=== PATIENT | female | born 1955 | race Caucasian/White ===

== ENCOUNTER 2019-12-09 09:50 | Outpatient (CLI) | payer OTHER, SELFPAY ==
--- NOTE | ~2019-12-09 | MM_ITS ---
EXAMINATION: MM screening reid BI w irish HISTORY: Screening TECHNIQUE: Craniocaudal and mediolateral oblique 3-D tomosynthesis images were obtained and synthetic 2-D images were generated. CAD analysis was submitted and interpreted. COMPARISON: Comparison to multiple prior studies sequentially, with oldest reviewed study dated 10/2013. BREAST PARENCHYMAL COMPOSITION: Breast composed of scattered areas of fibroglandular density FINDINGS: There is no evidence of suspicious mass, calcification, or architectural distortion to sugg est malignancy in either breast. There has been no suspicious interval change. IMPRESSION: 1. No mammographic evidence of malignancy. 2. Recommend routine screening mammography in one year. BI-RADS Category 1: Negative Reviewed, dictated and finalized at location A.
== END 2019-12-09 09:51 | disposition home or self-care (01) ==
LOC: ANHIMG 09:55
DX: Z12.31 Encounter for screening mammogram for malignant neoplasm of breast (principal)
CPT/HCPCS: 77063; 77067

== ENCOUNTER 2021-10-04 09:02 | Outpatient (CLI) | payer OTHER, SELFPAY ==
--- NOTE | ~2021-10-04 | MM_ITS ---
EXAMINATION: MM screening reid BI w irish HISTORY: Screening mammogram TECHNIQUE: Craniocaudal and mediolateral oblique 3-D tomosynthesis images were obtained and synthetic 2-D images were generated. CAD analysis was submitted and interpreted. COMPARISON: 12/09/2019, 11/10/2018, 10/03/2017 bilateral screening mammogram examinations BREAST PARENCHYMAL COMPOSITION: There are scattered areas of fibroglandular density. FINDINGS: There is no evidence of suspicious mass, calcification, or architectural distortion to sugg est malignancy in either breast. There has been no suspicious interval change. IMPRESSION: 1. No mammographic evidence of malignancy. 2. Recommend routine screening mammography in one year. BI-RADS Category 1: Negative Reviewed, dictated and finalized at location A.
== END 2021-10-04 09:03 | disposition home or self-care (01) ==
DX: Z12.31 Encounter for screening mammogram for malignant neoplasm of breast (principal)
CPT/HCPCS: 77063; 77067

== ENCOUNTER 2023-05-09 13:56 | Outpatient (CLI) | payer MEDICARE, MEDICAID, SELFPAY ==
--- NOTE | ~2023-05-09 | MM_ITS ---
EXAMINATION: MM screening reid BI w irish HISTORY: Screening mammogram, family history of breast cancer in her sister. TECHNIQUE: Craniocaudal and mediolateral oblique 3-D tomosynthesis images were obtained and synthetic 2-D images were generated. CAD analysis was submitted and interpreted. COMPARISON: 10/04/2021, 12/09/2019, 11/10/2018 BREAST PARENCHYMAL COMPOSITION: There are scattered areas of fibroglandular density. FINDINGS: No suspicious mass, calcification, or architectural distortion are identified in either timo ast to suggest malignancy. There has been no suspicious interval change. IMPRESSION: 1. No mammographic evidence of malignancy. 2. Recommend routine screening mammography in one year. BI-RADS Category 1: Negative Reviewed, dictated and finalized at location A. ATTORNEY
== END 2023-05-09 13:57 | disposition home or self-care (01) ==
LOC: ANHIMG 13:59
PROVIDERS: PCP Family Medicine; Visit Provider Family Medicine
DX: Z12.31 Encounter for screening mammogram for malignant neoplasm of breast (principal)
CPT/HCPCS: 77063; 77067

== ENCOUNTER 2025-03-16 09:56 | Outpatient (CLI) | payer MEDICARE, MEDICAID, SELFPAY ==
--- OUTSIDE RECORDS SUMMARY | 2024-11-09 08:10 | XMS_ITS ---
Author Organization 1 OF Carissa rudd [facility] Address [address] [facility] [address] [place] [address] Care Team Providers Care Hot Packer Name Role Phone Neil Louie Primary Care Provider David Robles Unavailable [phone] REASON FOR VISIT f/u B/L PF Encounters Encounter Location Date Provider Diagnosis 1 OF Carissa Rodriguez [facility] [address] [facility] [address] [place] [address] 11/09/2024 David Rodriguez Plantar fasciitis of right foot M72.2 ; Plantar fasciitis of left foot M72.2 ; 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 ; Pronation deformity of right foot M21.6X1 ; Equinus contracture of left ankle M24.572 and Equinus contracture of right ankle M24.571 Assessments Encounter Date Diagnosis (ICD Code) Assessment Notes Treatment Notes Treatment Clinical Notes Section Notes 11/09/2024 Plantar fasciitis of right foot (ICD-10 - M72.2) 11/09/2024 Plantar fasciitis of left foot (ICD-10 - M72.2) 11/09/2024 Pronation deformity of left foot (ICD-10 - M21.6X2) 11/09/2024 Pronation deformity of right foot (ICD-10 - M21.6X1) 11/09/2024 Equinus contracture of left ankle (ICD-10 - M24.572) 11/09/2024 Equinus contracture of right ankle (ICD-10 - M24.571) Plan Of Treatment No Information History and Physical Notes * HPI (History of Present Illness) Category Sub-Category Detail Notes Category Not es MA assisting with visit: Chart Prep Breanna Examination Category Sub-Category Detail Notes Category Not es General Examination Mental status: Cooperative, Oriented to person, place and time, Mood and affect: normal, Judgement and intellect: normal with appropriate response to questions Shoes today: XXXX Exam unchanged from prior visit: with no significant changes in appearance or condition of feet Constitutional / Appearance: No acute di stress , Well nourished, Appropriate personal hygiene Progress Notes * Willow ARTIS MDOB:1955 (70 yo F)Acc No.[id number]:11/09/2024 Progress Notes Patient: Ricardo mcdowell Willow Armendariz Provider: Carissa Rodriguez DPM :1955 A ge:69 Y S ex:Female Date:11/09/2024 Address:[address] [place], [place] [id number] Pcp:Neil Louie Subjective: * Chief Complaints: * f /u B/L PF * HPI: M A assisting with visit:: Chart Prep Rony cook reason for visit:: 69 y/o female RTO for f/u on PF. At last visit, an ultrasound was performed, foot strapping was applied bilaterally, prefab inserts were fitted and dispensed, we recommended new [employer] shoes and coupon was provided, and meloxicam was prescribed, but she was unable to take it due to it interacting with her other medications. Today the pt reports. Objective: * Examination: G eneral Examination: Constitutional / Appearance: N o acute distress , Well nourished, Appropriate personal hygiene. Mental status: C ooperative, Oriented to person, place and time, Mood and affect: normal, Judgement and intellect: normal with appropriate response to questions. Shoes today: X XXX. Exam unchanged from prior visit: w ith no significant changes in appearance or condition of feet . Assessment: * Assessment: 1. P lantar fasciitis of right foot - M72.2 (Primary) 2 . P lantar fasciitis of left foot - M72.2 3 . P ronation deformity of left foot - M21.6X2 ? 4 . P ronation deformity of right foot - M21.6X1 5 . E quinus contracture of left ankle - M24.572 6 . E quinus contracture of right ankle - M24.571? Plan: * Preventive Medicine: Counseling: C are goal follow-up plan: BMI counseling provided to patient:?Lifestyle education Screenings: F ALL RISK SCREENING Fall Risk Assessment: N o falls in the past year * Electronic signature of Mervat Rodriguez DPM on 2025 at 10:57 AM TRANSCRIPTIONIST Sign off status: Pending * Provider: Carissa Rodriguez DPM Date: 0 11/09/2024 Generated for Kirk oquendo/Rajat/Rand on: 1 05/16/2024 10:57 AM TRANSCRIPTIONIST
--- NOTE | ~2025-03-16 | MM_ITS ---
EXAMINATION: MM screening reid BI w irish HISTORY: Screening TECHNIQUE: Craniocaudal and mediolateral oblique 3-D tomosynthesis images were obtained and synthetic 2-D images were generated. CAD analysis was submitted and interpreted. COMPARISON: Comparison to multiple prior studies sequentially, with oldest reviewed study dated 08/29/2016. BREAST PARENCHYMAL COMPOSITION: Not dense: There are scattered areas of fibroglandular density. FINDINGS: There is no evidence of suspicious mass, calcification, or architectural distortion to suggest malignancy in either breast. There has been no suspicious interval change. IMPRESSION: 1. No mammographic evidence of malignancy. 2. Recommend routine screening mammography in one year. BI-RADS Category 1: Negative Reviewed, dictated and finalized at location B. [facility] [employer]
--- OUTSIDE RECORDS SUMMARY | 2025-03-16 10:57 | XMS_ITS | Clinical Summary ---
Author Organization [facility] Care Team Providers Care Neuropsychologist Name Role Phone Unavailable Primary Care Provider Unavailabl e Social History Tobacco Use Types Packs/Day Years Used Date Smoking Tobacco: Never Assessed Comments Unknown Sex and Gender Information Value Date Recorded Sex Assigned at Not on file Legal Sex Female 9:59 AM CDT Gender Identity Not on file Sexual Orientation Not on file Plan of Treatment Health Maintenance Due Date Last Done Comments Hepatitis C Virus (HCV) Screening 1955 TdaP Immunization 1955 Cologuard 2002 Colonoscopy 2002 Colorectal Cancer Screening 2002 Immunochemical Fecal Occult Blood 2002 Pneumococcal Immunization (50+ years) (1 of 1 - PCV) 2007 Zoster Immunization (1 of 2) 2007 Influenza Immunization (#1) 01/03/202502/03, 03/19/2019, 01/29/2018, Additional history exists SARS-COV-2 Immunization ( - season) 2025 Respiratory Syncytial Virus (RSV) Immunization (Adult) (1 - 1-dose 75+ series) 2032 Hepatitis B Immunization Aged Out No longer eligible based on patient's age to complete this topic Human Papillomavirus (HPV) Immunization Aged Out No longer eligible based on patient's age to complete this topic Meningococcal Immunization (ACWY) Aged Out No longer eligible based on patient's age to complete this topic Rotavirus Immunization Aged Out No lo nger eligible based on patient's age to complete this topic
--- OUTSIDE RECORDS SUMMARY | 2025-03-16 10:57 | XMS_ITS | Data Portability ---
Author Organization [place] - [facility] OFFICE Address [address] [place] [address] Care Team Providers Care Director [facility] Name Role Phone ISAI ONEILL Primary Care Provider Assessment Encounter Date Assessment Date Assessment LastModified by Organization Details LastModified Time 01/24/2022 01/24/2022 This document was scribed by KRISTINA Kohli [email or web address] Not available 01/23/2022 16:33:32 07/03/2023 07/03/2023 Patient Examined by KRISTINA Kohli, Also Documentation reviewed and approved by supervising physician [email or web address] Not available 07/03/2023 14:21:51 Plan of Treatment Reminders Order Date Submit Date Provider Last Modified By Organization Details Last Modified Time Details Appointments None recorded. Lab None recorded. Referral None recorded. Procedures None recorded. Surgeries None recorded. Imaging None recorded. Medication Orders Eliquis 5 mg tablet 2023 024 [email or web address] [facility], [address] [place] [address], [id number], 4 14:45:14 Nexletol 180 mg tablet 2022 023 [email or web address] [facility], [address] [place] [address], [id number], 3 13:49:38 Patient TargetsNo targets recorded. Patient Instructions Encounter Date Encounter Id Patient Instructions Last Modified By Organization Details Last Modified Time 01/24/2022 [id number] Exercise advised Low cholesterol diet advised Low sodium diet advised. [email or web address] Not available 01/24/2022 17:44:24 07/03/2023 [id number] Low cholesterol diet advised Low sodium diet advised. [email or web address] Not available 07/03/2023 14:27:01 09/30/2023 [id number] Exercise advised Low cholesterol diet advised Low sodium diet advised. [email or web address] Not available 09/30/2023 09:45:32 Reason for Referral None Reported. Results Created Date Observation Date Name Description Value Unit Range Abnormal Flag Note LastModifiedBy Organization Detail LastModifiedTime 01/17/2001/15/2022 elect rocar diogr am No observ ation record ed. [email or web address] Not Available 2021 11:51:50 07/30/19 23 07/26/2022 elect rocar diogr am No observ ation record ed. [email or web address] Not Available 2022 12:49:55 04/23/20 23 04/17/2023 US, echoc ardio gram No observ ation record ed. [email or web address] Not Available 2022 14:21:11 05/28/19 24 04/30/2023 event monit or No observ ation record ed. [email or web address] Not Available 2023 13:27:02 07/09/19 24 07/03/2023 elect rocar diogr am No observ ation record ed. Not Available 2023 10:33:34 09/01/19 24 08/07/2023 US, carot id arter y No observ ation record ed. [email or web address] Not Available 2023 14:57:14 09/30/19 24 09/30/2023 elect rocar diogr am No observ ation record ed. [email or web address] Not Available 2023 10:13:12 Result Notes Documentation Provider Name and Address Organization Details Recorded Time Lipid Panel, Blood : 07/31/23:Na 142,K 4.0,CL 103,CO2 26,GLU 87,BUN 8,Cr 0.77,AST 15,ALT 6,TSH ,T4 ,T3 ,HbA1c ,CK 54.Mg . 07/31/23:TC 206,TG 73,HDL 56,LDL 137. Jim Kovacs [facility], [place] - [facility] 08/03/2023 17:10:01 Problems Name Problem SNOMED Code Status Onset Date Resolution Date Notes Provider Name and Address Organization Details Recorded Time Supraventr icular tachycardi a 1991508 Active 2016 Jim Kovacs [facility] 7 12:28:38 Palpitatio ns 74678650 [facility] 7 14:59:40 Hypothyroi dism 68445854 Active 2016 Lenny Bowles [facility] 7 15:04:35 Chest pain 71610501 Active 2016 Lenny Bowles [facility] 7 15:15:35 Coronary arterioscl erosis 78385039 Active 201710/28/17 CATH: Single vessel coronary artery disease with small vessel disease, otherwise no obstructiv e disease. Normal left ventricula r systolic function. Fernandezmeena Kovacs [facility] 8 11:53:05 Mixed hyperlipid emia 269553059 Active 2019 Jim Kovacs [facility] 3 16:22:26 Mitral valve prolapse 905296100 Active 2020 [facility] 1 15:49:03 Problem Notes None recorded. Medical Equipment None Reported. Allergies Allergen ID Allergen Name Allergen Category Reaction Reaction Severity Criticality Documentation Date Start Date Code Code System Note Provider Name and Address Organization Details Recorded Time 6463 cefprozil medicatio n Not available Not available Not available 11/02/2017 88053 RxNorm Jim Kovacs [facility] 8 11:59:03 6464 cephalexi n medicatio n Not available Not available Not available 11/02/2017 2231 RxNorm Fernandez [facility] 8 11:59:29 Medications Name Sig Start Date Stop Date Status Note LastModified by Organization Details LastModified Time nystatin 100,000 unit/mL oral suspensio n Hold one teaspoon in MOUTH AND THEN swallow 4x daily Discard THE remainin g 04/05 completed Not Available Not Available Not Available atorvasta tin 20 mg tablet TAKE ONE TABLET BY MOUTH EVERY DAY 07/17 completed Not Available Not Available Not Available clindamyc in HCl 300 mg capsule 03/24 completed Not Available Not Available Not Available triazolam 0.25 mg tablet TAKE ONE TABLET BY MOUTH ONE HOUR BEFORE dental appt, if very nervous take THE other TABLET at bedtime THE night BEFORE dental appt do not drive while taking this med, must arrange transpor tation TO AND from appt 01/15 completed Not Available Not Available Not Available atorvasta tin 10 mg tablet 1 tab qd 03/26 completed Not Available Not Available Not Available azithromy shahla 250 mg tablet 11/04 completed Not Available Not Available Not Available nystatin 100,000 unit/gram topical ointment 09/29 completed Not Available Not Available Not Available clarithro mycin 500 mg tablet 11/04 completed Not Available Not Available Not Available hydrocodo ne 5 mg-acetam inophen 325 mg tablet TAKE ONE TABLET BY MOUTH EVERY 6 HOURS NEEDED FOR PAIN 04/05 completed Not Available Not Available Not Available ondansetr on HCl 4 mg tablet ON THE DAY prior TO surgery TAKE ONE TABLET BY MOUTH AT 12pm AND TAKE ONE TABLET BY MOUTH AT 7pm 04/05 completed Not Available Not Available Not Available famotidin e 40 mg tablet TAKE ONE TABLET BY MOUTH DAILY 04/05 completed prn Not Available Not Available Not Available prednison e 20 mg tablet TAKE THREE TABLETS BY MOUTH EVERY DAY FOR THREE DAYS THEN TAKE TWO TABLETS BY MOUTH EVERY DAY FOR THREE DAYS THEN TAKE ONE TABLET BY MOUTH FOR THREE DAYS 04/05 completed Not Available Not Available Not Available alendrona te 70 mg tablet TAKE ONE TABLET BY MOUTH ONCE weekly in THE morning 30 MINUTES BEFORE first food, beverage , OR medicine 04/05 completed Not Available Not Available Not Available metronida zole 250 mg tablet TAKE ONE TABLET BY MOUTH EVERY DAY FOR 10 DAYS 03/02 completed Not Available Not Available Not Available metronida zole 500 mg tablet 03/02 completed Not Available Not Available Not Available fluocinon herman 0.05 % topical ointment 09/29 completed Not Available Not Available Not Available acetamino phen 300 mg-codein e 30 mg tablet 09/29 completed Not Available Not Available Not Available ciproflox acin 250 mg tablet 03/24 completed Not Available Not Available Not Available ciproflox acin 500 mg tablet TAKE ONE TABLET BY MOUTH AT 2pm, 3pm AND 10pm THE DAY BEFORE surgery 03/02 completed Not Available Not Available Not Available sulfameth oxazole 800 mg-trimet hoprim 160 mg tablet TAKE ONE TABLET BY MOUTH TWICE DAILY 04/05 completed Not Available Not Available Not Available peg-elect rolyte solution 420 gram oral solution take as directed by office 04/05 completed Not Available Not Available Not Available omeprazol e 40 mg capsule,d elayed release TAKE ONE CAPSULE BY MOUTH DAILY BEFORE a meal 03/02 completed pt is no longer taking 07/26/22 SA Not Available Not Available Not Available aspirin 81 mg tablet,de layed release Take 1 tablet every day by oral route. 09/29 completed Pt is not taking this medicati on 06/23/19 21 sm Not Available Not Available Not Available tramadol 50 mg tablet 09/29 completed Not Available Not Available Not Available Medrol 4 mg tablet Take 1 tablet 4 times a day by oral route as needed. 03/06 completed Not Available Not Available Not Available levothyro xine 25 mcg tablet 03/24 completed pt not taking 03/24/20 SP Not Available Not Available Not Available levothyro xine 75 mcg tablet TAKE 1 TABLET BY MOUTH ONCE DAILY active Not Available Not Available No t Available nystatin- triamcino lone 100,000 unit/gram -0.1 % topical ointment 09/29 completed Not Available Not Available Not Available ofloxacin 0.3 % ear drops 03/06 completed Not Available Not Available Not Available famotidin e 20 mg tablet TAKE ONE TABLET BY MOUTH NIGHTLY at bedtime FOR ONE MONTH NEEDED 04/05 completed prn Not Available Not Available Not Available lorazepam 0.5 mg tablet 09/29 completed Not Available Not Available Not Available tamsulosi n 0.4 mg capsule Take 1 capsule every day by oral route. 03/26 completed Not Available Not Available Not Available dicyclomi ne 20 mg tablet TAKE ONE TABLET BY MOUTH THREE TIMES DAILY NEEDED 03/02 completed Not Available Not Available Not Available baclofen 10 mg tablet 09/29 completed Not Available Not Available Not Available levothyro xine 50 mcg tablet TAKE ONE TABLET BY MOUTH ONCE daily 09/28 completed Not Available Not Available Not Available hydrocodo ne 7.5 mg-acetam inophen 325 mg tablet Take 1 tablet every 6 hours by oral route as needed. 09/29 completed Not Available Not Available Not Available pantopraz ole 40 mg tablet,de layed release TAKE ONE TABLET BY MOUTH TWICE DAILY active Not Available Not Available No t Available simvastat in 20 mg tablet pt hasnt started this has question s 11/03/17 nl 03/26 completed Not Available Not Available Not Available triamcino lone acetonide 0.1 % topical ointment apply topicall y TO external vulvar tissues EVERY DAY DIRECTED 04/05 completed Not Available Not Available Not Available promethaz ine 25 mg tablet TAKE ONE-HALF TABLET BY MOUTH EVERY SIX HOURS NEEDED 04/05 completed Not Available Not Available Not Available nitroglyc rachel 0.4 mg sublingua l tablet DISSOLVE 1 TABLET UNDER THE TONGUE EVERY 5 MINUTES NEEDED FOR CHEST PAIN. DO NOT EXCEED A TOTAL OF 3 DOSES IN 15 MINUTES. 04/05 completed Not Available Not Available Not Available gabapenti n 300 mg capsule 06/23 completed Not Available Not Available Not Available omeprazol e 20 mg capsule,d elayed release TAKE TWO TABLETS BY MOUTH TWICE DAILY 03/02 completed pt is no longer taking 07/26/22 SA Not Available Not Available Not Available clobetaso l 0.05 % topical ointment 09/29 completed Not Available Not Available Not Available ibuprofen 600 mg tablet 09/29 completed Not Available Not Available Not Available scopolami ne 1 mg over 3 days transderm al patch apply one PATCH TO cleaned AND DRY SKIN behind ear AT 12 NOON ON THE DAY BEFORE surgery AND LEAVE ON 04/05 completed Not Available Not Available Not Available methylpre dnisolone 4 mg tablets in a dose pack 03/06 completed Not Available Not Available Not Available Vitamin D2 1,250 mcg (50,000 unit) capsule TAKE ONE CAPSULE BY MOUTH ONCE a WEEK 04/05 completed Not Available Not Available Not Available ondansetr on 4 mg disintegr ating tablet TAKE ONE TABLET BY MOUTH EVERY 8 HOURS NEEDED FOR NAUSEA OR FOR VOMITING UP TO 10 DAYS 04/05 completed prn Not Available Not Available Not Available fluticaso ne propionat e 50 mcg/actua tion nasal spray,ana pension instill TWO SPRAYS in each nostril ONCE daily 04/05 completed Not Available Not Available Not Available dicyclomi ne 10 mg capsule TAKE ONE CAPSULE BY MOUTH EVERY SIX hours NEEDED 04/05 completed Not Available Not Available Not Available loratadin e 10 mg tablet 03/06 completed Not Available Not Available Not Available simethico ne 80 mg chewable tablet chew ONE TABLET BY MOUTH THREE TIMES DAILY NEEDED FOR belching 04/05 completed Not Available Not Available Not Available oxycodone 5 mg tablet 04/05 completed Not Available Not Available Not Available Vitamin D 50,000 unit capsule Take 1 capsule by oral route. 03/02 completed Not Available Not Available Not Available cyclobenz aprine 5 mg tablet TAKE 1 TO 2 TABLETS BY MOUTH THREE TIMES DAILY NEEDED muscle tightnes s 04/05 completed Not Available Not Available Not Available rosuvasta tin 5 mg tablet TAKE ONE TABLET BY MOUTH EVERY EVENING 04/05 completed pt is no longer taking 07/26/22 SA Not Available Not Available Not Available nitrofura ntoin monohydra te/macroc rystals 100 mg capsule 09/29 completed Not Available Not Available Not Available Vitamin D3 09/28 completed Not Available Not Available Not Available Vitamin B12 09/28 completed Not Available Not Available Not Available FeroSul 325 mg (65 mg iron) tablet TAKE 1 TABLET BY MOUTH TWICE DAILY active Not Available Not Available No t Available Linzess 145 mcg capsule TAKE ONE CAPSULE BY MOUTH EVERY DAY 04/05 completed Not Available Not Available Not Available Eliquis 5 mg tablet TAKE 1 TABLET BY MOUTH TWICE DAILY active Not Available Not Available No t Available dicyclomi ne 10 mg tablet Take 4 times a day by oral route as needed. 11/04 completed Not Available Not Available Not Available Fluvirin 5847-5527 (PF) 45 mcg(15 mcg x3)/0.5 mL intramusc ular syringe 03/06 completed Not Available Not Available Not Available Nexletol 180 mg tablet TAKE ONE TABLET BY MOUTH DAILY 04/05 completed Not Available Not Available Not Available ID NOW COVID-19 Test Kit TEST DIRECTED 01/15 completed Not Available Not Available Not Available Vitals Date Recorded Body height Body mass index (BMI) Body weight Heart rate Oxygen saturation Oxygen saturation in Arterial blood by Pulse oximetry Systolic And Diastolic Provider Name and Address Organization Details Last Updated DateTime 4 149.86 cm 24.8 kg/m2 59867.4 2 g 75 /min 98 % 98 % 120/82 mm[Hg] Eleanor Pinedaes [facility] 4 13:51:31 Date Recorded Body height Body mass index (BMI) Body weight Oxygen saturation Oxygen saturation in Arterial blood by Pulse oximetry Heart rate Systolic And Diastolic Provider Name and Address Organization Details Last Updated DateTime 3 149.86 cm 22.5 kg/m2 61072.5 5 g 99 % 99 % 60 /min 120/72 mm[Hg] KHUSHBOO LEUNG [facility] 3 11:49:58 Date Recorded Body height Body mass index (BMI) Body weight Heart rate Oxygen saturation Oxygen saturation in Arterial blood by Pulse oximetry Systolic And Diastolic Provider Name and Address Organization Details Last Updated DateTime 4 149.86 cm 25.6 kg/m2 31268.5 1 g 55 /min 97 % 97 % 125/72 mm[Hg] Mara White [facility] 4 09:18:18 Date Recorded Body height Body mass index (BMI) Body weight Systolic And Diastolic Provider Name and Address Organization Details Last Updated DateTime 01/24/2022 149.86 cm 21.4 kg/m2 85192.51 g 106/62 mm[Hg] KHUSHBOO LEUNG [facility] 01/24/2022 17:22:09 Date Recorded Body height Body mass index (BMI) Body weight Heart rate Oxygen saturation Oxygen saturation in Arterial blood by Pulse oximetry Systolic And Diastolic Provider Name and Address Organization Details Last Updated DateTime 3 149.86 cm 23.2 kg/m2 41220.1 2 g 61 /min 97 % 97 % 114/67 mm[Hg] Mara White [facility] 3 13:52:24 Social History Question Answer Notes LastModified by Organizat ion Details LastModified Time Tobacco Smoking Status Never Smoker Not Available [facility] 03/07/2020 03:30:41 Marital Status shahida rudd not available 03/06/2017 What Was The Date Of Your Most Recent Tobacco Screening? 03/06/2017 [id number] Information not available 03/07/2020 How Many Children Do You Have? 2 [id number] Information not available 03/07/2020 How Much Tobacco Do You Smoke? No Information not available 03/23/2020 How Many Years Have You Smoked Tobacco? 0 [id number] Information not available 03/07/2020 Sex: Unknown Functional Status Question Answer Note LastModified by Organizat ion Details LastModified Time What is your level of alcohol consumption? None [id number] Information not available 03/07/2020 Do you or have you ever used smokeless tobacco? Never used smokeless tobacco Information not available 03/23/2020 Do you or have you ever used e-cigarettes or vape? Never used electronic cigarettes Information not available 03/23/2020 Mental Status None recorded. Family History Nothing Reported Notes:father with AR in 60s Medical History Condition Response Coronary Artery Disease Y Thyroid Disease Y Valvular Heart Disease Y Hyperlipidemia Y Arrhythmia Y Gynecological HistoryNo gynecological history recorded. Obstetrics History GPAL:G 0 P 0 0 0 0 Past Encounters Encounter ID Performer Location Encounter Start Date Encounter Closed Date Diagnosis/Indication Diagnosis SNOMED-CT Code Diagnosis ICD10 Code Diagnosis IMO Codes Diagnosis Note [id number] MD Lauren Cantu Office [address] [place] [address] 03/06/2017 14:09:36 03/07/2017 14:18:31 Palpitations 15328542 R00.2 Chronic, daily, but improved off tamsulosin . Obtain 24 hour Holter initially. Obtain CMP, Mg. Hypothyroidism 94889391 E03.9 Obtain TSH. Chest pain 95811434 R07. 9 Patient presents with chest pain with atypical features and exertional dyspnea which can be an anginal equivalent . Given the history, exam findings and high cardiac risk factors, I feel additional investigat ion is warranted. I have made arrangemen ts in the near future for an exercise stress nuclear test and an echocardio gram to evaluate for any ischemia or structural heart disease. The procedure was discussed with the patient, and risks, benefits, and alternativ e options were explained. Appropriat e labwork has not been performed recently, therefore I have made arrangemen ts for further testing: FLP, CMP, Mg, TSH. I have asked the patient to curtail exercise and activities until our investigat ion is complete. I have made the following adjustment s to the present medical regimen. Patient has been started on daily aspirin. [id number] Lenny Bowles MD [facility] Office [address] [place] [address] 03/25/2017 11:54:28 03/31/2017 11:42:25 Palpitations 75752024 R00.2 Chronic, daily, but improved off tamsulosin and with reduction in caffeine. Obtained unremarkab le 24 hour Holter initially but pt did not have symptoms while wearing. Reports single episode 03/16/17 of tachypalpi tations for 20 minutes with some associated dizziness and presyncope . Obtain 30 day event monitor. Consider adjustment of Synthroid as below. Hypothyroidism 98727763 E03.9 Obtained TSH 03/10/17 which was low at 0.05. Free T4 high at 1.93. Pt to f/u with PCP for possible reduction in levothyrox ine. Pt reports weight loss and tachypalpi tations. Chest pain 83040438 R07. 9 Atypical chest pain stable. Had exercise nuclear stress test 03/20/17: negative for ischemia, LVEF 60%. LDL 111 03/2017. [id number] Jean Paul Edwards MD [place] [facility] [address] [place] [address] 11/04/2017 17:54:36 11/10/2017 16:28:57 Palpitations 30633947 R00.2 Chronic, daily, but improved off tamsulosin and with reduction in caffeine. Obtained unremarkab le 24 hour Holter initially but pt did not have symptoms while wearing. Reports single episode 03/16/17 of tachy palpitatio ns for 20 minutes with some associated dizziness and presyncope . Obtain 30 day event monitor. Consider adjustment of Synthroid as below. Hypothyroidism 67281545 E03.9 Obtained TSH 03/10/17 which was low at 0.05. Free T4 high at 1.93. Pt to f/u with PCP for possible reduction in levothyrox ine. Pt reports weight loss and tachy palpitatio ns. Chest pain 45192076 R07. 9 Resolved, with stable angina Cardiac rehab at [facility] Had exercise nuclear stress test 03/20/17: negative for ischemia, LVEF 60%. 10/27/17: LDL 139Started on Simvastati n Patient has been given a prescripti on for sublingual nitroglyce rin. Coronary arteriosclerosis 65611563 I25.10 Had Echo on 10/28/17 showing normal LV thickness, and function EF 55-60%. Mild MVP. Trace mitral regurgitat ion. She had Cath 10/27/17 which showed single vessel coronary artery disease with small vessel disease, otherwise no obstructiv e disease. Normal LV systolic function. [id number] Jean Paul Edwards MD [place] [facility] [place] [address] 02/03/2018 12:43:28 02/03/2018 14:22:50 Coronary arteriosclerosis 00865607 I25.10 Stable. Had Echo on 10/28/17 showing normal LV thickness, and function EF 55-60%. Mild MVP. Trace mitral regurgitat ion. She had Cath 10/27/17 which showed single vessel coronary artery disease with small vessel disease, otherwise no obstructiv e disease. Normal LV systolic function. Palpitations 80681037 R0 0.2 Chronic, daily, but improved off tamsulosin and with reduction in caffeine. Obtained unremarkab le 24 hour Holter initially but pt did not have symptoms while wearing. Fish oil for PVC's Hypothyroidism 82211376 E03.9 Obtained TSH 03/10/17 which was low at 0.05. Free T4 high at 1.93. Pt to f/u with PCP for possible reduction in levothyrox ine. Pt reports weight loss and tachy palpitatio ns. Chest pain 82128426 R07. 9 Resolved, with stable angina Cardiac rehab at [facility] Had exercise nuclear stress test 03/20/17: negative for ischemia, LVEF 60%. [id number] Jean Paul Edwards MD [place] [facility] [place] [address] 09/22/2018 11:14:13 09/22/2018 12:22:44 Coronary arteriosclerosis 04973588 I25.10 Stable. Continue medical management . Had Echo on 10/28/17 showing normal LV thickness, and function EF 55-60%. Mild MVP. Trace mitral regurgitat ion. She had Cath 10/27/17 which showed single vessel coronary artery disease with small vessel disease, otherwise no obstructiv e disease. Normal LV systolic function. Palpitations 96100479 R0 0.2 Chronic, daily, but improved off tamsulosin and with reduction in caffeine.O btained unremarkab le 24 hour Holter initially but pt did not have symptoms while wearing. Fish oil for PVC's Hypothyroidism 76598251 E03.9 Obtained TSH 03/10/17 which was low at 0.05. Free T4 high at 1.93. Pt to f/u with PCP for possible reduction in levothyrox ine. Pt reports weight loss and tachy palpitatio ns. Chest pain 95826356 R07. 9 Symptoms resolved. Mixed hyperlipidemia 267 084939 E78.2 LDL is not at goal. Will increase Atorvastat in from 10 to 20 mg daily.07/04 09/20: TC 152 ,TG 56 ,HDL 49 ,LDL 92 ,CK 42 [id number] Jean Paul Edwards MD [address] [address] 03/26/2019 11:02:08 03/26/2019 12:14:02 Coronary arteriosclerosis 85450189 I25.10 Stable. Continue medical management . Had Echo on 10/28/17 showing normal LV thickness, and function EF 55-60%. Mild MVP. Trace mitral regurgitat ion. She had Cath 10/27/17 which showed single vessel coronary artery disease with small vessel disease, otherwise no obstructiv e disease. Normal LV systolic function. Palpitations 63828489 R0 0.2 Resolved. Hypothyroidism 66945543 E03.9 Obtained TSH 03/10/17 which was low at 0.05. Free T4 high at 1.93. Pt to f/u with PCP for possible reduction in levothyrox ine. Pt reports weight loss and tachy palpitatio ns. Chest pain 99486867 R07. 9 Symptoms resolved. Mixed hyperlipidemia 267 361432 E78.2 LDL at goal. Continue taking atorvastat in 20 mg03/19/19 LIPID: TC 153, TR 82, HDL 49, LDL 88 [id number] Corey Redd MD [place] [facility] [address] [place] [address] 03/24/2020 11:16:09 03/24/2020 12:30:35 Coronary arteriosclerosis 82986716 I25.10 Stable, remains asymptomat ic. [facility] 10/27/2017 : single vessel coronary artery disease with small vessel disease, otherwise no obstructiv e disease. Normal LV systolic function. Stress test 03/20/17 : Negative stress test for ischemia. Normal LV systolic function. No previous study to compare. Exercise tolerance is average. LVEF >60%. Palpitations 14046952 R0 0.2 Resolved Echo 10/28/2017 : normal LV thickness, and function EF 55-60%. Mild MVP. Trace mitral regurgitat ion. Hypothyroidism 52132217 E03.9 Managed by PCP Chest pain [id number] R07. 9 Resolved Mixed hyperlipidemia 267 981124 E78.2 Needs to keep LDL less than 70, and HDL more than 40. 02/29/2020 LDL 102Reports she stopped taking atorvastat in 20mg but reports she will restart Will get fasting lipids for follow-up Mitral valve prolapse 40 [id number] I34.1 Remains asymptomat ic Echo 10/28/2017 : There is normal left ventricula r wall thickness. Left ventricula r systolic function is normal. Ejection fraction= 55-60%. There is mild mitral valve prolapse. There is trace mitral regurgitat ion. [id number] MD Lauren [facility] Office [address] [place] [address] 06/23/2020 11:08:20 06/23/2020 11:58:04 Coronary arteriosclerosis [id number] I25.10 Stable, recent ER visit with atypical chest pain and palpitatio ns Check holterChec k 2D echo [facility] 10/27/2017 : single vessel coronary artery disease with small vessel disease, otherwise no obstructiv e disease. Normal LV systolic function. Stress test 03/20/17 : Negative stress test for ischemia. Normal LV systolic function. No previous study to compare. Exercise tolerance is average. LVEF >60%. Palpitations [id number] R0 0.2 Resolved Echo 10/28/2017 : normal LV thickness, and function EF 55-60%. Mild MVP. Trace mitral regurgitat ion. Hypothyroidism 05405772 E03.9 Managed by PCP Chest pain [id number] R07. 9 Resolved Mixed hyperlipidemia 267 315478 E78.2 Needs to keep LDL less than 70, and HDL more than 40. 02/29/2020 LDL 102Reports she stopped taking atorvastat in 20mg but reports she will restart Will get fasting lipids for follow-up Mitral valve prolapse 40 6053601 I34.1 Remains asymptomat ic Echo 10/28/2017 : There is normal left ventricula r wall thickness. Left ventricula r systolic function is normal. Ejection fraction= 55-60%. There is mild mitral valve prolapse. There is trace mitral regurgitat ion. [id number] Jean Paul Edwards MD [place] [facility] [address] [place] [address] 09/29/2020 09:52:49 09/29/2020 10:24:51 Coronary arteriosclerosis [id number] I25.10 Stable, now asymptomat ic. [facility] 10/27/2017 : Single vessel coronary artery disease with small vessel disease, otherwise no obstructiv e disease. Normal LV systolic function. Continue maximal medical treatment Palpitations [id number] R0 0.2 Resolved Echo 07/24/2020 : LV wall thickness is normal. LV systolic function is normal. The estimated left ventricle ejection fraction is 55-60% (normal). There is a trileaflet aortic valve. There is trivial aortic regurgitat ion. Mitral valve prolapse cannot be ruled out. The mitral valve leaflet is mildly thickened. There is mild mitral regurgitat ion. Tricuspid valve is structural ly normal. There is moderate tricuspid regurgitat ion. There is no pericardia l effusion present. Sinus bradycardi a. Hypothyroidism 10723711 E03.9 Managed by PCP Chest pain [id number] R07. 9 Resolved LHC as above Mixed hyperlipidemia 267 991903 E78.2 Needs to keep LDL less than 70, and HDL more than 40. 06/18/2020 LDL 103 Restarted atorvastat in 20 mg at last visit Will get fasting lipdis for follow-up Mitral valve prolapse 40 2017467 I34.1 Now asymptomat ic Echo as above [id number] Jean Paul Edwards MD [place] [facility] [address] [place] [address] 07/17/2021 10:20:04 07/17/2021 11:30:36 Coronary arteriosclerosis 73616151 I25.10 Stable, now asymptomat ic. [facility] 10/27/2017 : Single vessel coronary artery disease with small vessel disease, otherwise no obstructiv e disease. Normal LV systolic function. Continue maximal medical treatment Palpitations [id number] R0 0.2 Fish oilEcho 07/24/2020 : LV wall thickness is normal. LV systolic function is normal. The estimated left ventricle ejection fraction is 55-60% (normal). There is a trileaflet aortic valve. There is trivial aortic regurgitat ion. Mitral valve prolapse cannot be ruled out. The mitral valve leaflet is mildly thickened. There is mild mitral regurgitat ion. Tricuspid valve is structural ly normal. There is moderate tricuspid regurgitat ion. There is no pericardia l effusion present. Sinus bradycardi a. Hypothyroidism 50964029 E03.9 Managed by PCP Chest pain [id number] R07. 9 Resolved [facility] as above Mixed hyperlipidemia 267 391127 E78.2 Needs to keep LDL less than 70, and HDL more than 40. 06/18/2020 LDL 103 Restarted atorvastat in 20 mg at last visit Will get fasting lipdis for follow-up Mitral valve prolapse 40 1639996 I34.1 Now asymptomat ic Echo as above Atrial fibrillation 4943 6004 I48.91 [id number] Jean Paul Edwards MD [place] [facility] [address] [place] [address] 01/15/2022 10:48:14 01/15/2022 11:31:33 Coronary arteriosclerosis 20041717 I25.10 Stable, now asymptomat ic.take baby aspirin [facility] 10/27/2017 : Single vessel coronary artery disease with small vessel disease, otherwise no obstructiv e disease. Normal LV systolic function. Continue maximal medical treatment Palpitations [id number] R0 0.2 Fish oilEcho 07/24/2020 : LV wall thickness is normal. LV systolic function is normal. The estimated left ventricle ejection fraction is 55-60% (normal). There is a trileaflet aortic valve. There is trivial aortic regurgitat ion. Mitral valve prolapse cannot be ruled out. The mitral valve leaflet is mildly thickened. There is mild mitral regurgitat ion. Tricuspid valve is structural ly normal. There is moderate tricuspid regurgitat ion. There is no pericardia l effusion present. Sinus bradycardi a. Hypothyroidism 56647520 E03.9 Managed by PCP Chest pain [id number] R07. 9 Resolved [facility] as above Mixed hyperlipidemia 267 181598 E78.2 Needs to keep LDL less than 70, and HDL more than 40. 06/18/2020 LDL 103 She is not taking atorvastat in Will get fasting lipdis for follow-up Mitral valve prolapse 40 5931989 I34.1 Now asymptomat ic Echo as above [id number] Jean Paul Edwards MD [place] [facility] [place] [address] 01/24/2022 17:01:08 01/24/2022 17:47:52 Coronary arteriosclerosis 21820511 I25.10 Stable, now asymptomat ic.take baby aspirin [facility] 10/27/2017 : Single vessel coronary artery disease with small vessel disease, otherwise no obstructiv e disease. Normal LV systolic function. Continue maximal medical treatment Palpitations 43828405 R0 0.2 Fish oilEcho 07/24/2020 : LV wall thickness is normal. LV systolic function is normal. The estimated left ventricle ejection fraction is 55-60% (normal). There is a trileaflet aortic valve. There is trivial aortic regurgitat ion. Mitral valve prolapse cannot be ruled out. The mitral valve leaflet is mildly thickened. There is mild mitral regurgitat ion. Tricuspid valve is structural ly normal. There is moderate tricuspid regurgitat ion. There is no pericardia l effusion present. Sinus bradycardi a. Hypothyroidism 92828254 E03.9 Managed by PCP Chest pain [id number] R07. 9 Resolved [facility] as above Mixed hyperlipidemia 267 087593 E78.2 Needs to keep LDL less than 70, and HDL more than 40. 06/18/2020 LDL 103 She is not taking atorvastat in Will get fasting lipdis for follow-up Mitral valve prolapse 40 7007442 I34.1 Now asymptomat ic Echo as above [id number] Jean Paul Edwards MD [place] [facility] [address] [place] [address] 07/26/2022 11:22:30 07/26/2022 12:11:58 Coronary arteriosclerosis 93549928 I25.10 Stable, now asymptomat ic.take baby aspirin [facility] 10/27/2017 : Single vessel coronary artery disease with small vessel disease, otherwise no obstructiv e disease. Normal LV systolic function. Continue maximal medical treatment Palpitations 75930228 R0 0.2 Fish oilEcho 07/24/2020 : LV wall thickness is normal. LV systolic function is normal. The estimated left ventricle ejection fraction is 55-60% (normal). There is a trileaflet aortic valve. There is trivial aortic regurgitat ion. Mitral valve prolapse cannot be ruled out. The mitral valve leaflet is mildly thickened. There is mild mitral regurgitat ion. Tricuspid valve is structural ly normal. There is moderate tricuspid regurgitat ion. There is no pericardia l effusion present. Sinus bradycardi a. Hypothyroidism 80485133 E03.9 Managed by PCP Chest pain [id number] R07. 9 Resolved [facility] as above Mixed hyperlipidemia 267 319216 E78.2 Needs to keep LDL less than 70, and HDL more than 40. 06/18/2020 LDL 103 She is not taking atorvastat in will try on nexletol Mitral valve prolapse 40 8050347 I34.1 Now asymptomat ic Echo as above [id number] Jean Paul Edwards MD [place] [facility] [address] [place] [address] 04/05/2023 13:34:50 04/05/2023 14:18:23 Coronary arteriosclerosis 64756193 I25.10 Stable, now asymptomat ic [facility] 10/27/2017 : Single vessel coronary artery disease with small vessel disease, otherwise no obstructiv e disease. Normal LV systolic function. Continue maximal medical treatment Palpitations 46636361 R0 0.2 Fish oil24 hours Holter monitorObt ain echo to evaluate for structural /functiona l disease. Hypothyroidism 42325650 E03.9 Managed by PCP Mixed hyperlipidemia 267 921494 E78.2 Needs to keep LDL less than 70, and HDL more than 40. 06/18/2020 LDL 103 She is not taking atorvastat in will try on nexletol Mitral valve prolapse 40 4366625 I34.1 Now asymptomat ic [id number] Jean Paul Edwards MD [place] [facility] [address] [place] [address] 07/03/2023 13:40:36 07/03/2023 14:39:20 Coronary arteriosclerosis 83026786 I25.10 Treadmill Myoview Stress test, has high [place] Risk score. Has Known CAD, or CAD risk equivalent . To look for any ischemia. [facility] 10/27/2017 : Single vessel coronary artery disease with small vessel disease, otherwise no obstructiv e disease. Normal LV systolic function. Continue maximal medical treatment Palpitations 53968567 R0 0.2 monitor showed paroxysmal a fib with rvrHer REX score of 3will start her on eliquis 5 mg dailywell controlled rate Hypothyroidism 33213588 E03.9 Managed by PCP Mixed hyperlipidemia 267 413395 E78.2 Needs to keep LDL less than 70, and HDL more than 40.*Last LDL was 142 done on 02/20/22. Pt takes rosuvastat in 5 mg daily.(Pt dose not takes any statins now.(not taking atorvastat in due to cramps.)wi ll retest her lipid Mitral valve prolapse 40 3975726 I34.1 Now asymptomat ic Paroxysmal atrial fibrillation 370473759 I48.0 monitor showed paroxysmal a fib with rvrHer REX score of 3will start her on eliquis 5 mg dailywell controlled rate Carotid bruit 219590908 R09.89 [place] do [place] [id number] Jean Paul Edwards MD [place] [facility] [address] [place] [address] 09/30/2023 09:07:07 09/30/2023 09:50:22 Coronary arteriosclerosis 34532151 I25.10 Treadmill Myoview Stress test, has high [place] Risk score. Has Known CAD, or CAD risk equivalent . To look for any ischemia. [facility] 10/27/2017 : Single vessel coronary artery disease with small vessel disease, otherwise no obstructiv e disease. Normal LV systolic function. Continue maximal medical treatment Palpitations 23754885 R0 0.2 monitor showed paroxysmal a fib with rvrHer REX score of 3will start her on eliquis 5 mg dailyWill arrange for EP for ablation Hypothyroidism 77752229 E03.9 Managed by PCP Mixed hyperlipidemia 267 797353 E78.2 Needs to keep LDL less than 70, and HDL more than 40.*Last LDL was 142 done on 02/20/22. Pt takes rosuvastat in 5 mg daily.(Pt dose not takes any statins now.(not taking atorvastat in due to cramps.)wi ll retest her lipid Mitral valve prolapse 40 3651507 I34.1 Now asymptomat ic Paroxysmal atrial fibrillation 629490618 I48.0 monitor showed paroxysmal a fib with rvrHer REX score of 3will start her on eliquis 5 mg dailyWill refer for ablation Health Concerns Section Related Observation LastModified by Organization Detai ls LastModified Time None Recorded Concern Status LastModified by Organization Details LastModified Time None Recorded Advance Directives Directive None Recorded Payers Encounter Date Sequence Insurance Name Policy Number Policy Galvez Covered Member ID Galvez Member ID Guarantor Name 01/24/2022 1 [facility] PRIOR TO 11/02/2020 (MEDICAID REPLACEMENT - HMO) Willow Sylvester [id number] Willow Sylvester 07/26/2022 1 [place] Willow Sylvester [id number] Willow Sylvester 04/05/2023 1 [facility] (MEDICARE REPLACEMENT/AD VANTAGE - PPO) [id number] Willow Sylvester [id number] Willow Sylvester 07/03/2023 1 [facility] (MEDICARE REPLACEMENT/AD VANTAGE - PPO) [id number] Willow Sylvester [id number] Willow Sylvester 09/30/2023 1 [facility] (MEDICARE REPLACEMENT/AD VANTAGE - PPO) [id number] Willow Sylvester [id number] Willow Sylvester Notes Date Note Type Note Provider Name and Address Organization Details Recorded Time 2 text/html Atrial FibrillationReported by Patient 01/24/22CC : Cardiac follow up, chest [id number] white woman with a PMH of single vessel CAD, MVP, dyslipidemia, hypothyroidism, GERD, presents today for follow-up. She was last seen in the clinic on 01/15/22, since then she is activeShe denies ER visits and hospitalizations since she was last seen. Denies chest pain, but has heart burn.Denies shortness of breath at rest. Has mild dyspnea on exertion.No orthopnea. No PNDs.Denies heart palpitations.Denies dizziness. Denies syncope or near syncope.No ankle or leg edema.No major bleeding events.No reported side effects from medications. Taking medications as prescribed with no missed doses.Denies snoring, daytime somnolence and AM headache.*Last LDL was 103 done on 06/17/20.Pt dose not takes any statins now.(not taking atorvastatin due to cramps.) Previously :She had more Palpitation. She is doing well. She is walking daily. She had more Palpitation * 48 HR HOLTER 07/24/20 : Unremarkable holter. Sinus rhythm. Sinus bradycardia * ECHO 07/24/20 LV wall thickness is normal LV systolic function is normal The estimated left ventricle ejection fraction is 55-60% (normal) There is a trileaflet aortic valve There is trivial aortic regurgitation Mitral valve prolapse cannot be ruled out The mitral valve leaflet is mildly thickened There is mild mitral regurgitation Tricuspid valve is structurally normal there is moderate tricuspid regurgitation there is no pericardial effusion present Sinus Bradycardia She was recently seen in the ER with palpitations. Her symptoms have since resolved. She reports feeling well with no complaints. She was at [facility] 10/27/17 for chest pain. *She had Cath 10/27/17 which showed single vessel coronary artery disease with small vessel disease, otherwise no obstructive disease. Normal LV systolic function. The patients parents had heart issues and believes her father had a AR heart attack before 50 years old and mother had AR in late 50's. Patients sister had AR when she was 63. Reports single episode 03/16/17 of tachypalpitations for 20 minutes which are improved since last visit. Some associated dizziness and presyncope. No chest pain. *Had 24 hr Holter 03/06/17: unremarkable, occ. PACs unrelated to symptoms. *Had exercise nuclear stress test 03/20/17: negative for ischemia, LVEF 60%. Results from this visit, or from the past:CMP, serum or plasma [id number] panel, blood [id number] w/ diff LIPID: TC 153, TR 82, HDL 49, LDL CMP: NA 143, K 3.9, CL 104, CO2 25, GLU 91, BUN 5, CR 0.63, AST 14, ALT 803: Na 143 ,K 4.5 , CL 102, CO2 27 , GLU 82, BUN 6, CR 0.65, AST 12 ,ALT 8,07/27/18: TC 152 ,TG 56 ,HDL 49 ,LDL 92 ,CK 42CBC 07/22/2018 WBC 4.8 RBC 3.86 HGB 11.3 HCT 34.7 PLT 2557812/29/17:SOD 142,K 4.7,CL 103,CO2 27,GLU 84,BUN 8,CR 0.67,AST 15,ALT 9,CK 42,TG 48,TC 142,HDL 52,LDL 80. 03/10/17: Na 143,K 4.4 ,CL 102 ,CO2 27 ,GLU 84 ,BUN 6 ,CR 0.67,TC 195 ,TG 58 ,HDL 50,LDL 111,AST 18 ,ALT 11, US, echocardiogram [id number] monitor [id number] am [id number], chest EKG: NSR105/26/18 EKG: Poor R progression in chest leads.09/22/18 EKG: sinus bradycardia. low voltage, chest leads. Poor R progression in chest leads.EKG 02/03/18 : Low voltage chest leads Flat T waves anterior leads EKG 10/27/17: Sinus bradycardia. Otherwise normal ECG. When compared with ECG of 2017, No significant change was found. EKG 03/06/17: sinus bradycardia, 58 bpm, low voltage. Abnormal. strss test 03/20/17 : Negative stress test for ischemia. Normal LV systolic function. No previous study to compare. Exercise tolerance is average. LVEF >60%. 10/28/17 ECHO: There is normal left ventricular wall thickness. Left ventricular systolic function is normal. Ejection fraction= 55-60%. There is mild mitral valve prolapse. There is trace mitral regurgitation.03/20/17 ECHO: LV chamber size is normal. There is juan global systolic function and contractility. The estimated left ventricle ejection fraction is 55-60%(normal). Normal left atrial pressure with grade I Diastolic dysfunction. RV size is mildly dilated. There is mild mitral regurgitation. There is mild tricuspid regurgitation. Estimated RVSP is 36 mmhg. 03/20/17 ECHO: LV chamber size is normal. There is juan global systolic function and contractility. The estimated left ventricle ejection fraction is 55-60%(normal). Normal left atrial pressure with grade I Diastolic dysfunction. RV size is mildly dilated. There is mild mitral regurgitation. There is mild tricuspid regurgitation. Estimated RVSP is 36 mmhg. 10/28/17 CATH: Single vessel coronary artery disease with small vessel disease, otherwise no obstructive disease. Normal left ventricular systolic function. HOLTER: 03/06/17 Unremarkable holter. Rare PVC's but not correlated with symptoms. Occasional PAC's but not correlated with symptoms. 10/27/17 CHEST 1 VIEW: No acute abnormality identified. JeanP aul Edwards MD [address] [place], [address], [facility] 01/24/2022 17:45:02 3 text/html Atrial FibrillationReported by Patient 07/26/22CC : Cardiac follow up, dyspnea on [id number] white woman with a PMH of single vessel CAD, MVP, dyslipidemia, hypothyroidism, GERD, presents today for 6 month follow-up with labs results. She was last seen in the clinic on 01/24/22, since then she is activeShe denies ER visits and hospitalizations since she was last seen. Denies chest pain, but has heart burn.Denies shortness of breath at rest. Has mild dyspnea on exertion.No orthopnea. No PNDs.Denies heart palpitations.Denies dizziness. Denies syncope or near syncope.No ankle or leg edema.No major bleeding events.No reported side effects from medications. Taking medications as prescribed with no missed doses.Denies snoring, daytime somnolence and AM headache.*Last LDL was 142 done on 02/20/22.Pt dose not takes any statins now.(not taking atorvastatin due to cramps.) 02/21/22 : TC 209H, TR 54, HDL 57, LDL 142H, AST 11, ALT 6, CK 39 Previously :She had more Palpitation. She is doing well. She is walking daily. She had more Palpitation * 48 HR HOLTER 07/24/20 : Unremarkable holter. Sinus rhythm. Sinus bradycardia * ECHO 07/24/20 LV wall thickness is normal LV systolic function is normal The estimated left ventricle ejection fraction is 55-60% (normal) There is a trileaflet aortic valve There is trivial aortic regurgitation Mitral valve prolapse cannot be ruled out The mitral valve leaflet is mildly thickened There is mild mitral regurgitation Tricuspid valve is structurally normal there is moderate tricuspid regurgitation there is no pericardial effusion present Sinus Bradycardia *She had Cath 10/27/17 which showed single vessel coronary artery disease with small vessel disease, otherwise no obstructive disease. Normal LV systolic function. The patients parents had heart issues and believes her father had a AR heart attack before 50 years old and mother had AR in late 50's. Patients sister had AR when she was 63. Reports single episode 03/16/17 of tachypalpitations for 20 minutes which are improved since last visit. Some associated dizziness and presyncope. No chest pain. *Had 24 hr Holter 03/06/17: unremarkable, occ. PACs unrelated to symptoms. *Had exercise nuclear stress test 03/20/17: negative for ischemia, LVEF 60%. Results from this visit, or from the past:CMP, serum or plasma [id number] panel, blood [id number] w/ diff / LIPID: TC 153, TR 82, HDL 49, LDL CMP: NA 143, K 3.9, CL 104, CO2 25, GLU 91, BUN 5, CR 0.63, AST 14, ALT 8007/27/18: Na 143 ,K 4.5 , CL 102, CO2 27 , GLU 82, BUN 6, CR 0.65, AST 12 ,ALT 8,07/27/18: TC 152 ,TG 56 ,HDL 49 ,LDL 92 ,CK 42CBC 07/22/2018 WBC 4.8 RBC 3.86 HGB 11.3 HCT 34.7 PLT 40139:SOD 142,K 4.7,CL 103,CO2 27,GLU 84,BUN 8,CR 0.67,AST 15,ALT 9,CK 42,TG 48,TC 142,HDL 52,LDL 80. 03/10/17: Na 143,K 4.4 ,CL 102 ,CO2 27 ,GLU 84 ,BUN 6 ,CR 0.67,TC 195 ,TG 58 ,HDL 50,LDL 111,AST 18 ,ALT 11, US, echocardiogram [id number] monitor [id number] am [id number], chest EKG: NSR105/26/18 EKG: Poor R progression in chest leads.09/22/18 EKG: sinus bradycardia. low voltage, chest leads. Poor R progression in chest leads.EKG 02/03/18 : Low voltage chest leads Flat T waves anterior leads EKG 10/27/17: Sinus bradycardia. Otherwise normal ECG. When compared with ECG of 2017, No significant change was found. EKG 03/06/17: sinus bradycardia, 58 bpm, low voltage. Abnormal. strss test 03/20/17 : Negative stress test for ischemia. Normal LV systolic function. No previous study to compare. Exercise tolerance is average. LVEF >60%. 10/28/17 ECHO: There is normal left ventricular wall thickness. Left ventricular systolic function is normal. Ejection fraction= 55-60%. There is mild mitral valve prolapse. There is trace mitral regurgitation.03/20/17 ECHO: LV chamber size is normal. There is juan global systolic function and contractility. The estimated left ventricle ejection fraction is 55-60%(normal). Normal left atrial pressure with grade I Diastolic dysfunction. RV size is mildly dilated. There is mild mitral regurgitation. There is mild tricuspid regurgitation. Estimated RVSP is 36 mmhg. 03/20/17 ECHO: LV chamber size is normal. There is juan global systolic function and contractility. The estimated left ventricle ejection fraction is 55-60%(normal). Normal left atrial pressure with grade I Diastolic dysfunction. RV size is mildly dilated. There is mild mitral regurgitation. There is mild tricuspid regurgitation. Estimated RVSP is 36 mmhg. 10/28/17 CATH: Single vessel coronary artery disease with small vessel disease, otherwise no obstructive disease. Normal left ventricular systolic function. HOLTER: 03/06/17 Unremarkable holter. Rare PVC's but not correlated with symptoms. Occasional PAC's but not correlated with symptoms. 10/27/17 CHEST 1 VIEW: No acute abnormality identified. Jean Paul Edwards MD [address] [place], [address], [place] [facility] 07/26/2022 12:08:22 3 text/html Atrial FibrillationReported by Patient 04/05/23-CC : Cardiac follow [id number] white woman with a PMH of single vessel CAD, MVP, dyslipidemia, hypothyroidism, GERD, presents today for follow-up. She was last seen in the clinic on 07/26/22, since then she is activeShe denies ER visits and hospitalizations since she was last seen. Denies chest pain, but has heart burn.Denies shortness of breath at rest. Has mild dyspnea on exertion.No orthopnea. No PNDs.Denies heart palpitations.Denies dizziness. Denies syncope or near syncope.No ankle or leg edema.No major bleeding events.No reported side effects from medications. Taking medications as prescribed with no missed doses.Denies snoring, daytime somnolence and AM headache.*Last LDL was 142 done on 02/20/22. Pt takes rosuvastatin 5 mg daily.(Pt dose not takes any statins now.(not taking atorvastatin due to cramps.) * 48 HR HOLTER 07/24/20 : Unremarkable holter. Sinus rhythm. Sinus bradycardia * ECHO 07/24/20 LV wall thickness is normal LV systolic function is normal The estimated left ventricle ejection fraction is 55-60% (normal) There is a trileaflet aortic valve There is trivial aortic regurgitation Mitral valve prolapse cannot be ruled out The mitral valve leaflet is mildly thickened There is mild mitral regurgitation Tricuspid valve is structurally normal there is moderate tricuspid regurgitation there is no pericardial effusion present Sinus Bradycardia *She had Cath 10/27/17 which showed single vessel coronary artery disease with small vessel disease, otherwise no obstructive disease. Normal LV systolic function. The patients parents had heart issues and believes her father had a AR heart attack before 50 years old and mother had AR in late 50's. Patients sister had AR when she was 63. Reports single episode 03/16/17 of tachypalpitations for 20 minutes which are improved since last visit. Some associated dizziness and presyncope. No chest pain. *Had 24 hr Holter 03/06/17: unremarkable, occ. PACs unrelated to symptoms. *Had exercise nuclear stress test 03/20/17: negative for ischemia, LVEF 60%. Results from this visit, or from the past:CMP, serum or plasma [id number] panel, blood [id number] w/ diff / LIPID: TC 153, TR 82, HDL 49, LDL CMP: NA 143, K 3.9, CL 104, CO2 25, GLU 91, BUN 5, CR 0.63, AST 14, ALT 803: Na 143 ,K 4.5 , CL 102, CO2 27 , GLU 82, BUN 6, CR 0.65, AST 12 ,ALT 8,07/27/18: TC 152 ,TG 56 ,HDL 49 ,LDL 92 ,CK 42CBC 07/22/2018 WBC 4.8 RBC 3.86 HGB 11.3 HCT 34.7 PLT 3733912/29/17:SOD 142,K 4.7,CL 103,CO2 27,GLU 84,BUN 8,CR 0.67,AST 15,ALT 9,CK 42,TG 48,TC 142,HDL 52,LDL 80. 03/10/17: Na 143,K 4.4 ,CL 102 ,CO2 27 ,GLU 84 ,BUN 6 ,CR 0.67,TC 195 ,TG 58 ,HDL 50,LDL 111,AST 18 ,ALT 11, US, echocardiogram [id number] monitor [id number] am 70-35-5861NO, chest EKG: NSR105/26/18 EKG: Poor R progression in chest leads.09/22/18 EKG: sinus bradycardia. low voltage, chest leads. Poor R progression in chest leads.EKG 02/03/18 : Low voltage chest leads Flat T waves anterior leads EKG 10/27/17: Sinus bradycardia. Otherwise normal ECG. When compared with ECG of 2017, No significant change was found. EKG 03/06/17: sinus bradycardia, 58 bpm, low voltage. Abnormal. strss test 03/20/17 : Negative stress test for ischemia. Normal LV systolic function. No previous study to compare. Exercise tolerance is average. LVEF >60%. 10/28/17 ECHO: There is normal left ventricular wall thickness. Left ventricular systolic function is normal. Ejection fraction= 55-60%. There is mild mitral valve prolapse. There is trace mitral regurgitation.03/20/17 ECHO: LV chamber size is normal. There is juan global systolic function and contractility. The estimated left ventricle ejection fraction is 55-60%(normal). Normal left atrial pressure with grade I Diastolic dysfunction. RV size is mildly dilated. There is mild mitral regurgitation. There is mild tricuspid regurgitation. Estimated RVSP is 36 mmhg. 03/20/17 ECHO: LV chamber size is normal. There is juan global systolic function and contractility. The estimated left ventricle ejection fraction is 55-60%(normal). Normal left atrial pressure with grade I Diastolic dysfunction. RV size is mildly dilated. There is mild mitral regurgitation. There is mild tricuspid regurgitation. Estimated RVSP is 36 mmhg. 10/28/17 CATH: Single vessel coronary artery disease with small vessel disease, otherwise no obstructive disease. Normal left ventricular systolic function. HOLTER: 03/06/17 Unremarkable holter. Rare PVC's but not correlated with symptoms. Occasional PAC's but not correlated with symptoms. 10/27/17 CHEST 1 VIEW: No acute abnormality identified. Jean Paul Edwards MD [address] [place], [address], [facility] 04/05/2023 14:14:27 4 text/html Atrial FibrillationReported by Patient 07/03/23CC : Cardiac follow up [id number] white woman with a PMH of single vessel CAD, MVP, dyslipidemia, hypothyroidism, GERD, presents today for follow-up with ECHO and Event monitor results . She was last seen in the clinic on 04/05/23, since then she has event monitor showed paroxysmal a fib with rvr. *Last LDL was 142 done on 02/20/22. Pt takes rosuvastatin 5 mg daily.(Pt dose not takes any statins now.(not taking atorvastatin due to cramps.)She denies ER visits and hospitalizations since she was last seen. CC: pt has no concerns at this timeDenies chest pain, but has heart burn.Denies shortness of breath at rest. Has mild dyspnea on exertion.No orthopnea. No PNDs.pt admits occasional nightly heart palpitations.Denies dizziness. Denies syncope or near syncope.No ankle or leg edema.No major bleeding events.No reported side effects from medications. Taking medications as prescribed with no missed doses.Denies snoring, daytime somnolence and AM headache.*Last LDL was 142 done on 02/20/22. Pt takes rosuvastatin 5 mg daily.(Pt dose not takes any statins now.(not taking atorvastatin due to cramps.) *Had 3 day event monitor on 04/05/23 showed Paroxysmal Atrial fibrillation. *Had ECHO on 04/17/23 showed LV chamber size is normal. The estimated left ventricle ejection fraction is 50-55% (normal). Left Atrium chamber is mildly dilated. The aortic valve is mildly calcified. There is mild aortic regurgitation. Mitral valve prolapse is present. There is mild thickening of the mitral valve anterior leaflet. Sinus Bradycardia. Previously:*She had Cath 10/27/17 which showed single vessel coronary artery disease with small vessel disease, otherwise no obstructive disease. Normal LV systolic function. The patients parents had heart issues and believes her father had a AR heart attack before 50 years old and mother had AR in late 50's. Patients sister had AR when she was 63. Reports single episode 03/16/17 of tachypalpitations for 20 minutes which are improved since last visit. Some associated dizziness and presyncope. No chest pain. *Had exercise nuclear stress test 03/20/17: negative for ischemia, LVEF 60%. Results from this visit, or from the past:CMP, serum or plasma [id number] panel, blood [id number] w/ diff LIPID: TC 153, TR 82, HDL 49, LDL CMP: NA 143, K 3.9, CL 104, CO2 25, GLU 91, BUN 5, CR 0.63, AST 14, ALT 8007/27/18: Na 143 ,K 4.5 , CL 102, CO2 27 , GLU 82, BUN 6, CR 0.65, AST 12 ,ALT 8,07/27/18: TC 152 ,TG 56 ,HDL 49 ,LDL 92 ,CK 42CBC 07/22/2018 WBC 4.8 RBC 3.86 HGB 11.3 HCT 34.7 PLT 72198:SOD 142,K 4.7,CL 103,CO2 27,GLU 84,BUN 8,CR 0.67,AST 15,ALT 9,CK 42,TG 48,TC 142,HDL 52,LDL 80. 03/10/17: Na 143,K 4.4 ,CL 102 ,CO2 27 ,GLU 84 ,BUN 6 ,CR 0.67,TC 195 ,TG 58 ,HDL 50,LDL 111,AST 18 ,ALT 11, US, echocardiogram [id number] monitor [id number] am 92-64-2925SB, chest / EKG: NSR105/26/18 EKG: Poor R progression in chest leads.09/22/18 EKG: sinus bradycardia. low voltage, chest leads. Poor R progression in chest leads.EKG 02/03/18 : Low voltage chest leads Flat T waves anterior leads EKG 10/27/17: Sinus bradycardia. Otherwise normal ECG. When compared with ECG of 2017, No significant change was found. EKG 03/06/17: sinus bradycardia, 58 bpm, low voltage. Abnormal. strss test 03/20/17 : Negative stress test for ischemia. Normal LV systolic function. No previous study to compare. Exercise tolerance is average. LVEF >60%. 10/28/17 ECHO: There is normal left ventricular wall thickness. Left ventricular systolic function is normal. Ejection fraction= 55-60%. There is mild mitral valve prolapse. There is trace mitral regurgitation.03/20/17 ECHO: LV chamber size is normal. There is juan global systolic function and contractility. The estimated left ventricle ejection fraction is 55-60%(normal). Normal left atrial pressure with grade I Diastolic dysfunction. RV size is mildly dilated. There is mild mitral regurgitation. There is mild tricuspid regurgitation. Estimated RVSP is 36 mmhg. 03/20/17 ECHO: LV chamber size is normal. There is juan global systolic function and contractility. The estimated left ventricle ejection fraction is 55-60%(normal). Normal left atrial pressure with grade I Diastolic dysfunction. RV size is mildly dilated. There is mild mitral regurgitation. There is mild tricuspid regurgitation. Estimated RVSP is 36 mmhg. 10/28/17 CATH: Single vessel coronary artery disease with small vessel disease, otherwise no obstructive disease. Normal left ventricular systolic function. HOLTER: 03/06/17 Unremarkable holter. Rare PVC's but not correlated with symptoms. Occasional PAC's but not correlated with symptoms. 10/27/17 CHEST 1 VIEW: No acute abnormality identified. [facility] - [facility] 07/03/2023 14:28:46 4 text/html Atrial FibrillationReported by Patient 09/30/23CC : Cardiac follow [id number] white woman with a PMH of single vessel CAD, MVP, dyslipidemia, hypothyroidism, GERD, presents today for 6 month follow-up with carotid US and Labs results. She was last seen in the clinic on 07/03/23, since then she is more activeShe denies ER visits and hospitalizations since she was last seen. Today reports:no ccDenies chest pain.Denies shortness of breath at rest. Has mild dyspnea on exertion.No orthopnea. No PNDs.Denies heart palpitations.Denies dizziness. Denies syncope or near syncope.No ankle or leg edema.No major bleeding events.No reported side effects from medications. Taking medications as prescribed with no missed doses.Denies snoring, daytime somnolence and AM headache.*Last LDL was 137 done on 07/29/23.Pt (Pt not taking atorvastatin due to cramps.) *Had Carotid US on 08/07/23 showed Antegrade flow noted in both vertebral arteries. Mild bilateral internal carotid artery stenosis with less than 50% diameter stenosis. 07/31/23:Na 142,K 4.0,CL 103,CO2 26,GLU 87,BUN 8,Cr 0.77,AST 15,ALT 6,TSH ,T4 ,T3 ,HbA1c ,CK 54.Mg .07/31/23:TC 206,TG 73,HDL 56,LDL 137. Previously: She had event monitor showed paroxysmal a fib with rvr. *Had 3 day event monitor on 04/05/23 showed Paroxysmal Atrial fibrillation. *Had ECHO on 04/17/23 showed LV chamber size is normal. The estimated left ventricle ejection fraction is 50-55% (normal). Left Atrium chamber is mildly dilated. The aortic valve is mildly calcified. There is mild aortic regurgitation. Mitral valve prolapse is present. There is mild thickening of the mitral valve anterior leaflet. Sinus Bradycardia. *She had Cath 10/27/17 which showed single vessel coronary artery disease with small vessel disease, otherwise no obstructive disease. Normal LV systolic function. The patients parents had heart issues and believes her father had a AR heart attack before 50 years old and mother had AR in late 50's. Patients sister had AR when she was 63. Reports single episode 03/16/17 of tachypalpitations for 20 minutes which are improved since last visit. Some associated dizziness and presyncope. No chest pain. *Had exercise nuclear stress test 03/20/17: negative for ischemia, LVEF 60%. Results from this visit, or from the past:CMP, serum or plasma [id number] panel, blood [id number] w/ diff / LIPID: TC 153, TR 82, HDL 49, LDL CMP: NA 143, K 3.9, CL 104, CO2 25, GLU 91, BUN 5, CR 0.63, AST 14, ALT 803: Na 143 ,K 4.5 , CL 102, CO2 27 , GLU 82, BUN 6, CR 0.65, AST 12 ,ALT 8,07/27/18: TC 152 ,TG 56 ,HDL 49 ,LDL 92 ,CK 42CBC 07/22/2018 WBC 4.8 RBC 3.86 HGB 11.3 HCT 34.7 PLT 6693212/29/17:SOD 142,K 4.7,CL 103,CO2 27,GLU 84,BUN 8,CR 0.67,AST 15,ALT 9,CK 42,TG 48,TC 142,HDL 52,LDL 80. 03/10/17: Na 143,K 4.4 ,CL 102 ,CO2 27 ,GLU 84 ,BUN 6 ,CR 0.67,TC 195 ,TG 58 ,HDL 50,LDL 111,AST 18 ,ALT 11, US, echocardiogram [id number] monitor [id number] am 05-79-5215BN, chest EKG: NSR105/26/18 EKG: Poor R progression in chest leads.09/22/18 EKG: sinus bradycardia. low voltage, chest leads. Poor R progression in chest leads.EKG 02/03/18 : Low voltage chest leads Flat T waves anterior leads EKG 10/27/17: Sinus bradycardia. Otherwise normal ECG. When compared with ECG of 2017, No significant change was found. EKG 03/06/17: sinus bradycardia, 58 bpm, low voltage. Abnormal. strss test 03/20/17 : Negative stress test for ischemia. Normal LV systolic function. No previous study to compare. Exercise tolerance is average. LVEF >60%. 10/28/17 ECHO: There is normal left ventricular wall thickness. Left ventricular systolic function is normal. Ejection fraction= 55-60%. There is mild mitral valve prolapse. There is trace mitral regurgitation.03/20/17 ECHO: LV chamber size is normal. There is juan global systolic function and contractility. The estimated left ventricle ejection fraction is 55-60%(normal). Normal left atrial pressure with grade I Diastolic dysfunction. RV size is mildly dilated. There is mild mitral regurgitation. There is mild tricuspid regurgitation. Estimated RVSP is 36 mmhg. 03/20/17 ECHO: LV chamber size is normal. There is juan global systolic function and contractility. The estimated left ventricle ejection fraction is 55-60%(normal). Normal left atrial pressure with grade I Diastolic dysfunction. RV size is mildly dilated. There is mild mitral regurgitation. There is mild tricuspid regurgitation. Estimated RVSP is 36 mmhg. 10/28/17 CATH: Single vessel coronary artery disease with small vessel disease, otherwise no obstructive disease. Normal left ventricular systolic function. HOLTER: 03/06/17 Unremarkable holter. Rare PVC's but not correlated with symptoms. Occasional PAC's but not correlated with symptoms. 10/27/17 CHEST 1 VIEW: No acute abnormality identified. Jean Paul Edwards MD [address] [place], [address], [facility] 09/30/2023 09:46:07 OBGyn Episode No OBEpisode recorded.
--- OUTSIDE RECORDS SUMMARY | 2025-03-16 10:58 | XMS_ITS | Encounter Summary ---
Author Organization [facility] Healthcare Address [address] [place] [address] Care Team Providers Care Senior Data Developer Name Role Phone Neil Cazares MD Primary Care Provider [phone] Tori Campos MD Unavailable Encounter Details Date Type Department Care Team (Late st Contact Info) Description 07/08/2023 [place] Only [facility] [place] [address] [place] [id number] Scanning, Provider Social History Tobacco Use Types Packs/Day Years Used Date Smoking Tobacco: Never Passive Smoke Exposure: Never Smokeless Tobacco: Never Alcohol Use Standard Drinks/Week Comments No 0 (1 standard drink = 0.6 oz pur e alcohol) AUDIT-C Answer Date Recorded Q1: How often do you have a drink containing alcohol? Never 04/01/2022 Q2: How many drinks containi ng alcohol do you have on a typical day when you are drinking? Patient does not drink Q3: How often do you have si x or more drinks on one occasion? 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 [place] [address] Consulting Physician Pain Management 07/04/22 documented as of this encounter
--- OUTSIDE RECORDS SUMMARY | 2025-03-16 10:58 | XMS_ITS | Patient Health Record ---
Author Organization [facility] Address [address] [place] [address] Care Team Providers Care Coupon And Bond Collection Clerk Name Role Phone Neil Louie Primary Care Provider David Robles Unavailable Allergies Allergen (clinical drug ingredient) Drug/Non Drug Allergy documented on EMR Reaction Allergy Type Onset Date Status codeine Codeine stomach upset Drug Allergy act adebayo Penicillin stomach upset Drug Allergy ac tive Substance with 5-pbwlntm-3-methylglu taryl-coenzyme A reductase inhibitor mechanism of action (substance) Statins Unknown Drug Allergy active Reason For Referral No Information Medications Medication SIG (Take, Route, Frequency, Duration) Notes Start Date End Date Status Levothyroxine Sodium 75 MCG Tablet TAKE 1 TABLET BY MOUTH ONCE DAILY Oral; Duration: 90 Days Active Pantoprazole Sodium Active Vitamin D3 10/11/2024 Active HYDROcodone-Acetaminophe n 5-325 MG Tablet Oral; Duration: 3 Days Not-Taking/PRN Meloxicam 15 MG Tablet 1 tablet daily fo r 14 days, then PRN Orally once a day; Duration: 30 days 10/11/2024 Not-Taking/PRN Rivaroxaban Active Rosuvastatin Calcium Active Social History Tobacco Use: Social History Observation Description Date Details (start date - stop date) Never Smoker NA - NA Social History Tobacco Use: Social Info Question Answer Notes Tobacco Control (Standard) Tobacco use: Nonsmoker Additional Details Category Social Info Options Details Drugs/Alcohol: Alcohol use: Denies curren t alcohol use Problems Problem Type SNOMED Code ICD Code Onset Dates Problem Status W/U Status Risk Notes Problem Pronation deformity of left foot (M21.6X2) Active confirmed Problem Pronation deformity of right foot (M21.6X1) Active confirmed Problem Plantar fasciitis of right foot (99509650906347901 ) Plantar fasciitis of right foot (M72.2) Active confirmed Problem Plantar fasciitis of left foot (64267567940882526 ) Plantar fasciitis of left foot (M72.2) Active confirmed Problem Plantarflexion deformity of right foot (finding) (2048410229996319) Equinus contracture of right ankle (M24.571) Active confirmed Problem 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) Plantar fasciitis, bilateral (M72.2) Active confirmed Problem Equinus contracture of left ankle (M24.572) Active confirmed Encounters Encounter Location Date Provider Diagnosis [facility] [address] [place] [phone] 10/11/2024 David Rodriguez 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 ; Plantar fasciitis, bilateral M72.2 ; Pronation deformity of right foot M21.6X1 ; Calcaneal spur of right foot M77.31 ; Equinus contracture of left ankle M24.572 ; Equinus contracture of right ankle M24.571 ; Calcaneal spur of left foot M77.32 ; Foot pain, left M79.672 and Foot pain, right M79.671 1 [facility] [address] [place] [phone] 11/25/2024 David Rodriguez 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 ; Plantar fasciitis, bilateral M72.2 ; Pronation deformity of right foot M21.6X1 ; Equinus contracture of left ankle M24.572 and Equinus contracture of right ankle M24.571 [facility] [address] [place] [phone] 10/12/2024 David Rodriguez Assessments Encounter Date Diagnosis (ICD Code) Assessment Notes Treatment Notes Treatment Clinical Notes Section Notes 10/11/2024 Pronation deformity of left foot (ICD-10 - M21.6X2) 10/11/2024 Plantar fasciitis, bilateral (ICD-10 - M72.2) 11/25/2024 Pronation deformity of left foot (ICD-10 - M21.6X2) 11/25/2024 Plantar fasciitis, bilateral (ICD-10 - M72.2) 11/25/2024 Pronation deformity of right foot (ICD-10 - M21.6X1) 10/11/2024 Pronation deformity of right foot (ICD-10 - M21.6X1) 10/11/2024 Calcaneal spur of right foot (ICD-10 - M77.31) 11/25/2024 Equinus contracture of left ankle (ICD-10 - M24.572) 11/25/2024 Equinus contracture of right ankle (ICD-10 - M24.571) 10/11/2024 Equinus contracture of left ankle (ICD-10 - M24.572) 10/11/2024 Equinus contracture of right ankle (ICD-10 - M24.571) 10/11/2024 Calcaneal spur of left foot (ICD-10 - M77.32) 10/11/2024 Foot pain, left (ICD-10 - M79.672) 10/11/2024 Foot pain, right (ICD-10 - M79.671) 10/11/2024 Other Patient visit today included a review of medical history, review of systems, physical exam and discussion of exam findings, test results, and discussed the nature and etiology of plantar fasciitis as well as treatment options. I discussed the importance of wearing good supportive shoes and avoiding ambulation in slippers, flip flops or walking barefoot and I encouraged the patient to wear a good quality athletic sneaker whenever possible. Recommended local [employer] shoe store or a reputable running specialty store in the area for new shoes MILLICENT. ([employer] Balance models 800 and above) Discussed treatment options today including Rx and topical NSAIDs, prefab orthotics, custom orthotics, steroid injections, physical therapy, use of a night splint, immobilization and surgery as a last resort if conservative options fail to provide relief. Dispensed literature regarding plantar fasciitis and stretching exercises. Treatment today consisting of: - Discussed beneftis of orthotics which I advised can potentially improve alignment and stability of the lower extremity as well as improve shock absorption of the foot and ankle which may help alleviate symptoms associated with this condition. Patient will go with prefab orthotics and will consider custom orthotics in the future. - Recommended new [employer] shoes and coupon was provided. Taping of right foot was performed today and advised patient to remove it if it becomes umcomfortable or her skin becomes irritated. - Pre-valarie inserts were fitted and dispensed. Advised to utilize them once she removes taping that was applied today. - A prescription for Meloxicam 15 mg to take once daily for 14 days, then PRN for flare ups for pain. - She will follow up in 3-4 weeks 11/25/2024 Other Plantar fasciitis and Equinus B/L - Continue wearing new shoes and custom inserts. - Continue stretching exercises. - Advised that another set of inserts can be purchased from the front end web designer without an appointment if needed. - Patient education provided on the expected lifespan of inserts (6 months to a year depending on activity level). - Discussed the benefits of the new shoe material for breathability. - Follow-up in one month. May cancel the appointment if pain has resolved. Plan Of Treatment No Information Insurance Providers Payer Name Payer Address Payer Phone Subscriber Number Group Number Insured Name Patient Relationship to Insured Coverage Start Date Coverage End Date [employer] Medicare Complete [address] [address] [place], [place] [id number] Willow Sylvester Self - patient is the insured Medical (General) History Medical History History ICD Code Thyroid disease Surgical History Surgery Date(Month/Year) Cardiac surgery ablation
--- OUTSIDE RECORDS SUMMARY | 2025-03-16 10:58 | XMS_ITS | Clinical Summary ---
Author Organization [facility] Address [address] [place] [address] Care Team Providers Care History Department Chair Name Role Phone Neil Cazares MD Primary Care Provider [phone] Tori Campos MD Unavailable Allergies Active Allergy Reactions Criticality Noted Date Comments Amoxicillin Diarrhea,Nausea & Vomiting Low Atorvastatin Muscle pain Medium 05/26/2024 Azithromycin Nausea And Vomiting,Stomach upset Low 07/08/2017 Stomach/GI Upset Cefprozil Joint pain,Swelling Medium 07/08/2017 Swelling Cephalexin Swelling Medium 06/27/2020 Swelling Ciprofloxacin Headache,Unknown Low 05/17/2019 tendonitis Headache Clarithromycin Nausea only,Stomach upset Low 07/08/2017 Stomach/GI Upset Codeine Unknown,Stomach upset Low 12/16/2016 Severe stomach cramps Upset stomach Stomach/GI Upset Gluten Diarrhea,Hives,Nause a only,Rash,Stomach upset Medium 07/08/2017 Stomach/GI Upset Nitrofurantoin Stomach upset Low 06/27/2020 Stomach/GI Upset Penicillins Hives,Stomach upset,Unknown Medium 06/27/2020 Stomach/GI Upset Hives Tamsulosin Dizziness,Headache,U nkno wn,Palpitations Low 07/08/2017 Cluster headaches/ palpitations Dizziness/Light Headed Medications levothyroxine (SYNTHROID) 75 mcg tablet Take 1 tablet (75 mcg total) by mouth 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 [address] (PROTONIX) 40 mg EC tabletIndicatio ns:Treatment of Non-Bleeding Gastric Disorder,GERD Take 1 tablet (40 mg total) by mouth 2 (two) times a day 60 tablet 2 Active aspirin 81 mg enteric coated tablet Take 1 tablet (81 mg total) by mouth daily 90 tablet 3 4 Active rivaroxaban (XARELTO) 20 mg tablet Take 1 tablet (20 mg total) by mouth Active rosuvastatin (CRESTOR) 5 mg tablet Take 1 tablet (5 mg total) by mouth nightly 90 tablet 3 5 Active Active Problems Problem Noted Date Diagnosed Date Bilateral carotid artery stenosis 11/23/2024 MVP (mitral valve prolapse) 11/05/2023 A-fib 11/05/2023 Other thrombophilia 11/05/2023 Precordial chest pain 11/05/2023 Nonrheumatic aortic valve insufficiency 11/05/19 Diverticulosis of colon 12/02/2022 ACS (acute coronary syndrome) 03/31/2022 Acute chest pain 03/31/2022 COVID-19 04/23/2021 Lichen sclerosus et atrophicus of the vulva 01/04 Mitral valve prolapse 09/28/2020 Mixed hyperlipidemia 03/22/2020 Coronary arteriosclerosis 11/02/2017 Overview (11/04/2023): 10/28/17 CATH: Single vessel coronary artery disease with small vessel disease, otherwise no obstructive disease. Normal left ventricular systolic function. Arteriosclerosis of coronary artery 11/02/2017 Overview (11/05/2023): 10/28/17 CATH: Single vessel coronary artery disease with small vessel disease, otherwise no obstructive disease. Normal left ventricular systolic function. Arteriosclerosis of coronary artery 11/02/2017 Overview (11/22/2024): 10/28/17 CATH: Single vessel coronary artery disease with small vessel disease, otherwise no obstructive disease. Normal left ventricular systolic function. Lumbar radiculopathy 07/08/2017 Palpitations 03/06/2017 Hypothyroidism 03/06/2017 Chest pain 03/06/2017 Supraventricular tachycardia 03/05/2017 Gastroesophageal reflux disease without esophagi tis Elevated troponin Coronary artery disease Hypercholesteremia Normocytic normochromic anemia Acquired hypothyroidism Anxiety, generalized Closed wedge compression fracture of T11 vertebr a Status post kyphoplasty Surgical History Surgery Date Site/Laterality Comments KYPHOPLASTY 04/08/2022 N/A T11 Medical History Medical History Date Comments Hx Other Medical Arrhythmias Gastroesophageal reflux disease GERD Hypothyroidism Hypothyroidism Atrial fibrillation (HCC) Hyperlipidemia Mitral valve prolapse Family History Medical History Relation Name Comments Heart attack Sister 2 Myocardial Infa rction; Relation Name Status Comments Sister 1 Alive Sister 2 Social History Tobacco Use Types Packs/Day Years [...] Never 04/01/2022 Personal Safety Answer Date Recorded Have you ever been in or are you currently in a harmful physical or emotional relationship or is someone making you feel afraid or unsafe? 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 Oxygen Saturation 98% 11/23/2024 12:44 PM CDT Inhaled Oxygen Concentration - - Weight 61.2 kg (135 lb) 11/23/2024 12:44 PM CDT Height 149.9 cm (4' 11) 11/23/2024 12:44 PM CDT Body Mass Index 27.27 11/23/2024 12:44 PM CDT Plan of Treatment Health Maintenance Due Date Last Done Comments Breast Cancer Screening-Mammogram 1957 Colon Cancer Screening-Colonoscopy 1955 Depression Screening 1957 Hepatitis C Screening 1957 Osteoporosis Screening-Bone Density Scan 1957 DTaP/Tdap/Td Vaccine (1 - Tdap) 1968 Hepatitis B Screening 1975 Pneumococcal vaccine 65+ (1 of 1 - PCV) 2007 Zoster Vaccine (1 of 2) 2007 Well Visit 65+ 2022 Fall Risk Assessment 04/09/2023 04/09/2022 Influenza Vaccine (#1) 2025 0, 03/19/2019, 01/29/2018, Additional history exists Medical Devices Implanted Type Area Database Marketing Manager Device Identifier Shelf Expiration Date Model / Serial / Lot [employer] Avamax 13ga 15mm Balloon Tray Bone Cement [id number] - [id number] Implanted:Qty : 1 on 04/08/2022 by Tori Campos MD at [facility] N/A: Spine Lumbar [employer] [id number] 01/22/2024 [id number] / / [id number] [employer] Vertaplex Hv Autoplex Without Needle Delivery System Kit Bone [id number] - [id number] Implanted:Qty : 1 on 04/08/2022 by Tori Campos MD at [facility] N/A: Spine Lumbar [employer] [id number] 02/03/2024 [id number] / / [id number] Insurance IDPA [facility] MEDICARE ADVANTAGE [facility] IDPA [facility] MEDICARE ADVANTAGE Advance Directives For more information, please contact: [phone] * Full Code (Latest Code Status on File) Date Activated Date Inactivated Comments 04/01/2022 5:47 AM 04/09/2022 9:40 PM * Full Code Date Activated Date Inactivated Comments 03/31/2022 8:10 PM 04/01/2022 5:47 AM Care Teams History Department Chair Relationship Specialty Start Date End Date Neil Cazares MD PCP - General 06/18/20 Tori Campos MD [id number] [facility] [address] Consulting Physician Pain Management 07/04/22
== END 2025-03-16 09:57 | disposition home or self-care (01) ==
LOC: ANHFOHIMG 09:58
PROVIDERS: PCP Family Medicine; Visit Provider Family Medicine
DX: Z12.31 Encounter for screening mammogram for malignant neoplasm of breast (principal)
CPT/HCPCS: 77063; 77067